=== PATIENT | male | born 1990 | race African-American/Black ===

== ENCOUNTER 2017-11-20 17:57 | Emergency (ER) | payer OTHER ==
[2017-11-20] MEDS ORDERED: ONDANSETRON *ODT* 4 MG TABLET SL ONE (18:06)
[2017-11-20 18:07] VITALS: BP 132/89; PULSE 86; TEMP 98; BMI 25.7
--- NOTE | 2017-11-20 18:07 | PDOC ---
Rapid Medical Evaluation Time Seen by Provider: 11/20/17 18:01 Medical Evaluation: Allergies Allergy/AdvReac Type Severity Reaction Status Date / Time No Known Allergies Allergy Verified 11/20/17 18:02 11/20/17 18:02 Presents with abdominal pain, dry heaving. Pt. has hx of hemophelia A. Vomited blood one month ago, did not see his doctor at that time. No tasting blood when he burps. Exam:ambulatory, NAD. Abdomen soft, with epigastric pain. Orders: CBC, CMP, PT/INR, lipase, EKG, IV insert
[2017-11-20] MEDS ORDERED: ONDANSETRON *ODT* 4 MG TABLET ONE (19:32)
[2017-11-20 19:36] LABS: BASO % 0.6 % (0-2.0); EOS % 2.9 % (0-4.5); HEMATOCRIT 42.4 % (35.4-49); HEMOGLOBIN 14.2 GM/dL (11.7-16.9); LYMPH % 12.7 % (8-40); MCH 27.3 pg (25.7-33.7); MCHC 33.4 g/dl (32.0-35.9); MEAN CELL VOLUME 81.7 fl (80-96); MEAN PLT VOLUME 8.7 fl (7.5-11.1); MONO % 8.2 % (3.8-10.2); NEUT % 75.6 % (42.8-82.8); PLATELET COUNT 171 K/MM3 (134-434); RBC 5.18 M/mm3 (4.00-5.60); RDW 15.2 % (11.9-15.9); WHITE BLOOD COUNT 7.3 K/mm3 (4.0-10.0)
[2017-11-20 19:50] LABS: URINE APPEARANCE CLEAR; URINE BILIRUBIN NEGATIVE (<2.0 mg/dL); URINE COLOR YELLOW; URINE GLUCOSE (UA) NEGATIVE (NEGATIVE); URINE KETONE TRACE (NEGATIVE); URINE LEUK ESTERASE NEGATIVE (NEGATIVE); URINE NITRITE NEGATIVE (NEGATIVE); URINE PROTEIN NEGATIVE (NEGATIVE)
[2017-11-20 19:52] LABS: INR 1.09 (0.82-1.09); PROTHROMBIN TIME (PATIENT) 12.3 SEC (9.7-13.0)
[2017-11-20 20:02] LABS: ALBUMIN 3.9 g/dl (3.4-5.0); ANION GAP 8 (8-16); BLOOD UREA NITROGEN 13 mg/dL (7-18); CALCIUM 8.8 mg/dL (8.5-10.1); CHLORIDE 101 mmol/L (98-107); CO2 27 mmol/L (21-32); CREATININE 0.9 mg/dL (0.7-1.3); GLUCOSE,RANDOM 185 mg/dL (74-106); POTASSIUM 3.6 mmol/L (3.5-5.1); SGOT/AST 20 U/L (15-37); SGPT/ALT 29 U/L (12-78); SODIUM 136 mmol/L (136-145)
[2017-11-20 20:03] LABS: ALK PHOS 76 U/L (45-117); BILIRUBIN,TOTAL 0.5 mg/dL (0.2-1.0); TOT PROT 7.8 g/dl (6.4-8.2)
[2017-11-20] MEDS ORDERED: PANTOPRAZOLE SODIUM 40 MG VIAL IVPUSH ONE (22:46)
--- NOTE | 2017-11-20 22:46 | PDOC ---
History of Present Illness - General History Source: Patient Exam Limitations: No Limitations - History of Present Illness Initial Comments: 11/20/17 22:55 The patient is a 27 year old male with past medical history of hemophilia and ulcers who presents to the ED today with epigastric pain, nausea and vomiting that began today. The patient also notes his emesis had tinges of blood in it. He denies any associated hematochezia, melena, or diarrhea. Reports he had similar episode a month ago which subsided on its own. He denies any fevers, chills, cough, SOB, chest pain, or urinary symptoms. <Esther Baxter - Last Filed: 11/20/17 22:55> <Christy Patel - Last Filed: 11/21/17 00:27> - General Chief Complaint: Pain Stated Complaint: PAIN Time Seen by Provider: 11/20/17 18:01 Past History <Esther Baxter - Last Filed: 11/20/17 22:55> - Past Medical History Anemia: (HEMOPHILIA) COPD: No GI Disorders: Yes (ULCERS) Other medical history: HEMOPHILIA A - Suicide/Smoking/Psychosocial Hx Smoking History: Never smoked Have you smoked in the past 12 months: No Information on smoking cessation initiated: No Hx Alcohol Use: No Drug/Substance Use Hx: No Substance Use Type: None <Christy Patel - Last Filed: 11/21/17 00:27> - Past Medical History Allergies/Adverse Reactions: Allergies Allergy/AdvReac Type Severity Reaction Status Date / Time No Known Allergies Allergy Verified 11/20/17 18:02 Home Medications: Ambulatory Orders Factor XIII A-Subunit,Recomb [[place]] 4,000 unit IV DAILY 02/08/16 Review of Systems - Review of Systems Able to Perform ROS?: Yes Comments:: 11/20/17 23:00 CONSTITUTIONAL: Absent: fever, chills, diaphoresis, generalized weakness, malaise, loss of appetite HEENT: Absent: rhinorrhea, nasal congestion, throat pain, throat swelling, difficulty swallowing, mouth swelling, ear pain, eye pain, visual Changes CARDIOVASCULAR: Absent: chest pain, syncope, palpitations, irregular heart rate, lightheadedness , peripheral edema RESPIRATORY: Absent: cough, shortness of breath, dyspnea with exertion, orthopnea, wheezing, stridor, hemoptysis GASTROINTESTINAL:(+) epigastric pain, nausea, vomiting, hematemesis Absent:diarrhea, constipation, melena, hematochezia GENITOURINARY: Absent: dysuria, frequency, urgency, hesitancy, hematuria, flank pain, genital pain MUSCULOSKELETAL: Absent: myalgia, arthralgia, joint swelling SKIN: Absent: rash, itching, pallor HEMATOLOGIC/IMMUNOLOGIC: Absent: easy bleeding, easy bruising, lymphadenopathy, frequent infections ENDOCRINE: Absent: unexplained weight gain, unexplained weight loss, heat intolerance, cold intolerance NEUROLOGIC: Absent: headache, focal weakness or paresthesias, dizziness, unsteady gait, seizure, mental status changes, bladder or bowel incontinence PSYCHIATRIC: Absent: anxiety, depression, suicidal or homicidal ideation, hallucinations. All Other Systems: Reviewed and Negative <Esther Baxter - Last Filed: 11/20/17 22:55> *Physical Exam - Vital Signs Last Vital Signs Temp Pulse Resp BP Pulse Ox 98.0 F 86 18 132/89 100 11/20/17 18:03 11/20/17 18:03 11/20/17 18:03 11/20/17 18:03 11/20/17 18:03 - Physical Exam Comments: 11/20/17 23:01 GENERAL: Well developed, well nourished. Awake and alert. No acute distress. HEENT: Normocephalic, atraumatic. PERRLA, EOMI. No conjunctival pallor. Sclera are non- icteric. Moist mucous membranes. Oropharynx is clear. NECK: Supple. Full ROM. No JVD. Carotid pulses 2+ and symmetric, without bruits. No thyromegaly. No lymphadenopathy. CARDIOVASCULAR: Regular rate and rhythm. No murmurs, rubs, or gallops. Distal pulses are 2+ and symmetric. PULMONARY: No evidence of respiratory distress. Lungs clear to auscultation bilaterally. No wheezing, rales or rhonchi. ABDOMINAL: Soft. Epigastric tenderness on palpation. Non-distended. No rebound or guarding. No organomegaly. Normoactive bowel sounds. MUSCULOSKELETAL Normal range of motion at all joints. No bony deformities or tenderness. No CVA tenderness. EXTREMITIES: No cyanosis. No clubbing. No edema. No calf tenderness. SKIN: Warm and dry. Normal capillary refill. No rashes. No jaundice. NEUROLOGICAL: Alert, awake, appropriate. Cranial nerves 2-12 intact. No deficits to light touch and temperature in face, upper extremities and lower extremities. No motor deficits in the in face, upper extremities and lower extremities. Normoreflexic in the upper and lower extremities. Normal speech. Toes are down-going bilaterally. Gait is normal without ataxia. PSYCHIATRIC: Cooperative. Good eye contact. Appropriate mood and affect. <[email or web address] - Last Filed: 11/20/17 22:55> - Vital Signs Last Vital Signs Temp Pulse Resp BP Pulse Ox 98.0 F 86 18 132/89 100 11/20/17 18:03 11/20/17 18:03 11/20/17 18:03 11/20/17 18:03 11/20/17 18:03 <Christy Patel - Last Filed: 11/21/17 00:27> ED Treatment Course - LABORATORY CBC & Chemistry Diagram: 11/20/17 19:27 11/20/17 19:27 - ADDITIONAL ORDERS Additional order review: Laboratory Results 11/20/17 11/20/17 11/20/17 19:41 19:27 19:27 PT with INR 12.30 INR 1.09 Sodium 136 Potassium 3.6 Chloride 101 Carbon Dioxide 27 Anion Gap 8 BUN 13 Creatinine 0.9 Creat Clearance w eGFR > 60 Random Glucose 185 H D Calcium 8.8 Total Bilirubin 0.5 D AST 20 ALT 29 D Alkaline Phosphatase 76 Total Protein 7.8 Albumin 3.9 Lipase Urine Color Yellow Urine Appearance Clear Urine pH 6.0 Ur Specific [place] 1.023 Urine Protein Negative Urine Glucose (UA) Negative Urine Ketones Trace H Urine Blood Negative Urine Nitrite Negative Urine Bilirubin Negative Urine Urobilinogen 2.0 Ur Leukocyte Esterase Negative 11/20/17 19:00 PT with INR INR Sodium Potassium Chloride Carbon Dioxide Anion Gap BUN Creatinine Creat Clearance w eGFR Random Glucose Calcium Total Bilirubin AST ALT Alkaline Phosphatase Total Protein Albumin Lipase 45 L Urine Color Urine Appearance Urine pH Ur Specific [place] Urine Protein Urine Glucose (UA) Urine Ketones Urine Blood Urine Nitrite Urine Bilirubin Urine Urobilinogen Ur Leukocyte Esterase 11/20/17 19:27 RBC 5.18 MCV 81.7 MCHC 33.4 RDW 15.2 MPV 8.7 Neutrophils % 75.6 Lymphocytes % 12.7 Monocytes % 8.2 Eosinophils % 2.9 Basophils % 0.6 - Medications Given in the ED: ED Medications Discontinued Medications Generic Name Dose Route Start Last Admin Trade Name Freq PRN Reason Stop Dose Admin Ondansetron HCl 4 mg 11/20/17 18:06 11/20/17 19:34 Zofran Odt - SL 11/20/17 18:07 4 mg ONCE ONE Administration <Esther Baxter - Last Filed: 11/20/17 22:55> - LABORATORY CBC & Chemistry Diagram: 11/20/17 19:27 11/20/17 19:27 - ADDITIONAL ORDERS Additional order review: Laboratory Results 11/20/17 11/20/17 11/20/17 19:41 19:27 19:27 PT with INR 12.30 INR 1.09 Sodium 136 Potassium 3.6 Chloride 101 Carbon Dioxide 27 Anion Gap 8 BUN 13 Creatinine 0.9 Creat Clearance w eGFR > 60 Random Glucose 185 H D Calcium 8.8 Total Bilirubin 0.5 D AST 20 ALT 29 D Alkaline Phosphatase 76 Total Protein 7.8 Albumin 3.9 Lipase Urine Color Yellow Urine Appearance Clear Urine pH 6.0 Ur Specific [place] 1.023 Urine Protein Negative Urine Glucose (UA) Negative Urine Ketones Trace H Urine Blood Negative Urine Nitrite Negative Urine Bilirubin Negative Urine Urobilinogen 2.0 Ur Leukocyte Esterase Negative 11/20/17 19:00 PT with INR INR Sodium Potassium Chloride Carbon Dioxide Anion Gap BUN Creatinine Creat Clearance w eGFR Random Glucose Calcium Total Bilirubin AST ALT Alkaline Phosphatase Total Protein Albumin Lipase 45 L Urine Color Urine Appearance Urine pH Ur Specific [place] Urine Protein Urine Glucose (UA) Urine Ketones Urine Blood Urine Nitrite Urine Bilirubin Urine Urobilinogen Ur Leukocyte Esterase 11/20/17 19:27 RBC 5.18 MCV 81.7 MCHC 33.4 RDW 15.2 MPV 8.7 Neutrophils % 75.6 Lymphocytes % 12.7 Monocytes % 8.2 Eosinophils % 2.9 Basophils % 0.6 - RADIOLOGY Radiology Studies Ordered: Category Date Time Status CHEST PA & LAT [RAD] Stat Radiology 11/20/17 22:43 Ordered - Medications Given in the ED: ED Medications Discontinued Medications Generic Name Dose Route Start Last Admin Trade Name Freq PRN Reason Stop Dose Admin Ondansetron HCl 4 mg 11/20/17 18:06 11/20/17 19:34 Zofran Odt - SL 11/20/17 18:07 4 mg ONCE ONE Administration <Christy Patel - Last Filed: 11/21/17 00:27> Medical Decision Making - Medical Decision Making 11/21/17 00:15 PT'S SYMPTOMS RESOLVED s/p PPI,zofran benign abd exam cxr NO free under diaphragm stable VS -labs reviewed, normal hbg,hct,platelets chemistry revealed hyperglycemia 185 -pt received IVF plan followup with his GI doctor in the [place] <Christy Patel - Last Filed: 11/21/17 00:27> *DC/Admit/Observation/Transfer - Attestations Scribe Attestion: 11/20/17 23:01 Documentation prepared by Esther Baxter, acting as medical delivery technician for Christy Patel MD. <Esther Baxter - Last Filed: 11/20/17 22:55> <Christy Patel - Last Filed: 11/21/17 00:27> Diagnosis at time of Disposition: Epigastric abdominal pain - Discharge Dispostion Disposition: HOME Condition at time of disposition: Stable - Patient Instructions Printed Discharge Instructions: DI for Epigastric Pain Additional Instructions: PLEASE CALL YOUR GI SPECIALIST AND FOLLOWUP TAKE YOUR PROTONIX as prescribed
[2017-11-20] MEDS ORDERED: PANTOPRAZOLE SODIUM 40 MG/100 ML BAG IVPB ONE (23:10)
[2017-11-20] MEDS ORDERED: ONDANSETRON 4 MG/2 ML VIAL ONE (23:10)
--- NOTE | 2017-11-21 13:22 | EKG ---
Test Reason : Blood Pressure : / mmHG Vent. Rate : 072 BPM Atrial Rate : 072 BPM P-R Int : 146 ms QRS Dur : 098 ms QT Int : 380 ms P-R-T Axes : 059 048 046 degrees QTc Int : 416 ms NORMAL SINUS RHYTHM SEPTAL INFARCT , AGE UNDETERMINED ABNORMAL ECG NO PREVIOUS ECGS AVAILABLE Confirmed by ESTEBAN HERNANDEZ MD ([id number]) on 11/21/2017 1:22:35 PM Referred By: Confirmed By:ESTEBAN HERNANDEZ MD
== END 2017-11-21 00:50 | disposition home or self-care (01) ==
LOC: JER 17:57
PROC: 3E033GC Introduction of Other Therapeutic Substance into Peripheral Vein, Percutaneous Approach (ICD-10-PCS; principal; 2017-11-20)
DX: R10.13 Epigastric pain (principal); D66 Hereditary factor VIII deficiency; Z87.19 Personal history of other diseases of the digestive system
CPT/HCPCS: 36415; 71046-TC-FY; 80053; 81003; 83690; 85025; 85610; 93005; 93010; 96374; 99282-25; Q0162

== ENCOUNTER 2020-11-16 22:41 | Emergency (ER) | payer OTHER ==
[~2020-11-16 22:41] MED LIST: LIDOCAINE PATCH REMOVAL MC SCH
[2020-11-16 22:48] VITALS: BP 136/87; PULSE 69; TEMP 97.9; BMI 26.4
[2020-11-16] MEDS ORDERED: LIDOCAINE 5% TOPICAL PATCH TP ONE (23:20)
[2020-11-16] MEDS ORDERED: ACETAMINOPHEN 500 MG TABLET (FP) PO ONE (23:20)
[2020-11-17] MEDS ORDERED: ACETAMINOPHEN 500 MG TABLET (FP) ONE (00:35)
[2020-11-17] MEDS ORDERED: LIDOCAINE 5% TOPICAL PATCH ONE (00:35)
== END 2020-11-17 00:45 | disposition home or self-care (01) ==
LOC: JERFT 22:41
DX: M54.5 Low back pain (principal); R51.9 Headache, unspecified
CPT/HCPCS: 70450-TC; 99283-25

== ENCOUNTER 2022-10-27 08:14 | Emergency (ER) | payer OTHER ==
[2022-10-27 08:32] VITALS: RESP 18; BMI 25.3
[2022-10-27 09:01] LABS: BASO % 0.6 % (0-2.0); EOS % 1.8 % (0-4.5); HEMATOCRIT 39.5 % (35.4-49); LYMPH % 34.9 % (8-40); MCH 28.3 pg (25.7-33.7); MCHC 35.4 g/dl (32.0-35.9); MEAN CELL VOLUME 80.2 fl (80-96); MEAN PLT VOLUME 9.4 fl (7.5-11.1); MONO % 7.7 % (3.8-10.2); PLATELET COUNT 193 10^3/uL (134-434); RBC 4.93 M/mm3 (4.00-5.60); RDW 14.7 % (11.9-15.9)
[2022-10-27 09:08] LABS: INR 1.01 (0.83-1.09); PROTHROMBIN TIME (PATIENT) 11.7 SEC (9.7-13.0)
[2022-10-27 09:09] LABS: URINE APPEARANCE CLEAR; URINE BILIRUBIN NEGATIVE (NEGATIVE); URINE COLOR YELLOW; URINE GLUCOSE (UA) NEGATIVE (NEGATIVE); URINE KETONE NEGATIVE (NEGATIVE); URINE LEUK ESTERASE NEGATIVE (NEGATIVE); URINE NITRITE NEGATIVE (NEGATIVE); URINE PROTEIN NEGATIVE (NEGATIVE); URINE UROBILINOGEN 0.2 mg/dL (0.2-1.0)
[2022-10-27 09:11] LABS: ACTIVATED PTT 34.1 SECONDS (25.2-36.5)
[2022-10-27] MEDS ORDERED: ACETAMINOPHEN 1000 MG/100 ML BAG IVPB ONE (09:22)
[2022-10-27 09:24] LABS: CHLORIDE 106 mmol/L (98-107); SODIUM 136 mmol/L (136-145)
[2022-10-27 09:26] LABS: CALCIUM 9.4 mg/dL (8.5-10.1)
[2022-10-27 09:27] LABS: ALBUMIN 3.9 g/dl (3.4-5.0); BLOOD UREA NITROGEN 12.8 mg/dL (7-18); CO2 28 mmol/L (21-32); GLUCOSE,RANDOM 89 mg/dL (74-106); LIPASE < 10 U/L (73-393)
[2022-10-27 09:30] LABS: CREATININE 0.9 mg/dL (0.55-1.3); SGOT/AST 61 U/L (15-37); SGPT/ALT 32 U/L (13-61)
[2022-10-27 09:32] LABS: BILIRUBIN,TOTAL 0.4 mg/dL (0.2-1); TOT PROT 7.8 g/dl (6.4-8.2)
[2022-10-27 09:33] LABS: ALK PHOS 64 U/L (45-117)
[2022-10-27] MEDS ORDERED: ACETAMINOPHEN INJECTION 100 ML IVPB ONE (09:56)
[2022-10-27 10:02] LABS: ANION GAP 2 MMOL/L (8-16); POTASSIUM 6.4 mmol/L (3.5-5.1)
[2022-10-27 11:40] VITALS: BP 136/91; PULSE 69; TEMP 98
== END 2022-10-27 11:56 | disposition home or self-care (01) ==
LOC: JER 08:14
PROC: 3E033NZ Introduction of Analgesics, Hypnotics, Sedatives into Peripheral Vein, Percutaneous Approach (ICD-10-PCS; principal; 2022-10-27)
DX: R10.11 Right upper quadrant pain (principal); R06.02 Shortness of breath; R10.13 Epigastric pain
CPT/HCPCS: 36415; 74177-TC; 80053; 81003; 83690; 84132; 84484; 85025; 85610; 85730; 93005; 93010; 99285-25; Q9967